=== PATIENT | female | born 1990 | race African-American/Black ===

== ENCOUNTER 2018-01-09 10:22 | Emergency (ER) | payer OTHER ==
[~2018-01-09] VITALS: Ht 160 cm; Wt 90.7 kg
[~2018-01-09 10:22] MED LIST: BACTRIM DS 8001 TAB PO; BENTYL10 MG PO; BUTALB-ACETAMI1 EACH PO; CLEOCIN HCL300 MG PO; ESGIC CAPSULE1 EACH PO; IBUPROFEN600 M1 PO; IBUPROFEN800 M1 PO; PRILOSEC 20MG C20 MG PO; ZOFRAN ODT4 MG SL; ZOFRAN4 M1 SL
--- NOTE | 2018-01-09 10:48 | ED GI/GU/ABDOMINAL COMPLAINT ---
History of Present Illness General Chief Complaint: Nausea, Vomiting, Diarrhea Stated Complaint: NAUSEA, STOMACH PAIN Source: patient Exam Limitations: no limitations Vital Signs & Intake/Output Vital Signs & Intake/Output ED Intake and Output 01/10 0000 01/09 1200 Intake Total 0 Output Total Balance 0 Intake, Oral 0 Patient 200 lb Weight Weight Reported by Patient Measurement Method Allergies Coded Allergies: Penicillins (Intermediate, HIVES 10/05/17) amoxicillin (Intermediate, HIVES 10/05/17) cefaclor (Intermediate, HIVES 10/05/17) Reconcile Medications Butalb/Acetaminophen/Caffeine (Esgic Capsule) 50 MG-325 MG-40 MG CAPSULE 1 CAP PO Q6H PRN HEADACHE Doxylamine/Pyridoxine HCl (Diclegis Dr 10-10 MG Tablet) 10 MG-10 MG TABLET.DR 1 TAB PO TID NAUSEA Ibuprofen 800 MG TABLET 1 TAB PO TID PRN PAIN Nitrofurantoin Monohyd/M-Cryst (Macrobid 100 MG Capsule) 100 MG CAPSULE 1 CAP PO BID UTI with food Triage Note: C/O MID ABDOMINAL PAIN WITH NASUEA, SOME VOMITING X 3 MONTHS. LMP: 11/23, UNSURE OF . Triage Nurses Notes Reviewed? yes ? y Is pt currently ? No Onset: Abrupt Duration: day(s):, constant, continues in ED Timing: recent history Radiation: no radiation No Modifying Factors: none HPI: 27-year-old female that reports that her last menstrual period was on 2017. She comes in with some nausea and some lower abdominal cramping. Denies any bleeding or leakage of fluid. Denies any increased frequency or burning with urination. History of previous . She sexually active. Denies any other associated symptoms. (Padilla Hernandez) Past History Travel History Traveled to [place] past 21 day No Medical History Any Pertinent Medical History? 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 No (Padilla Hernandez) Review of Systems Review of Systems Constitutional: Reports: no symptoms. EENTM: Reports: no symptoms. Respiratory: Reports: no symptoms. Cardiovascular: Reports: no symptoms. GI: Reports: see HPI. Genitourinary: Reports: see HPI. Musculoskeletal: Reports: no symptoms. Skin: Reports: no symptoms. Neurological/Psychological: Reports: no symptoms. Hematologic/Endocrine: Reports: no symptoms. Immunologic/Allergic: Reports: no symptoms. All Other Systems: Reviewed and Negative (Padilla Hernandez) Physical Exam Physical Exam General Appearance: well developed/nourished, no apparent distress, alert, awake Head: atraumatic Eyes: Bilateral: normal appearance. Ears, Nose, Throat, Mouth: hearing grossly normal, moist mucous membrane Neck: normal inspection Respiratory: no respiratory distress Cardiovascular: regular rate/rhythm Gastrointestinal: soft, distention (lower abd) Back: normal inspection Extremities: normal range of motion Neurologic/Psych: awake, alert, oriented x 3 Skin: intact, normal color Core Measures ACS in differential dx? Yes Sepsis Present: No Sepsis Focused Exam Completed? No (Padilla Hernandez) Progress Differential Diagnosis: appendicitis, ectopic , intrauterine , ovarian cyst, UTI/pyelo Plan of Care: Orders Procedure Date/time Status Add-on Test (ER Only) 01/09 1111 Active CULTURE,URINE 01/09 1042 Active URINE 01/09 1031 Complete URINALYSIS 01/09 1031 Complete Laboratory Tests 01/09/18 1042: Urinalysis LIGHT H, Urine Color YEL, Urine Clarity CLDY H, Urine pH 6.5, Ur Specific [place] 1.025, Urine Protein NEG, Urine Ketones TRACE H, Urine Nitrite NEG, Urine Bilirubin NEG, Urine Urobilinogen 0.2, Ur Leukocyte Esterase TRACE H , Ur Microscopic SEDIMENT EXAMINED, Urine RBC 1-3, Urine WBC 15-25 H, Ur Epithelial Cells PACKD H, Urine Bacteria FEW H, Urine Mucus MOD H, Urine Hemoglobin TRACE-INTACT, Urine Glucose NEG, Urine Test POSITIVE Microbiology 01/09 1042 URINE ROUT: Urine Culture - RECD Initial ED EKG: none (Padilla Hernandez) Departure Departure Disposition: HOME OR SELF CARE Condition: Stable Clinical Impression Primary Impression: Secondary Impressions: UTI (urinary tract infection) Referrals: Unknown (PCP) Additional Instructions: Take diclegis as prescribed. f/u with obgyn . take Macrobid as prescribed. Return if any concerns worsening symptoms. Please go over all results of today's visit with your primary care doctor. Contact your primary care doctor to let them know you were here in the emergency room. There may be nonspecific findings which may not be related to your visit today here in the emergency room but may require further evaluation and chronic monitoring by your primary care doctor. If you had a laceration today the chance of foreign body always remains. You should follow-up with your primary care doctor for recheck in 3-5 days for a wound check. If you had an x-ray done there is a chance that a fracture could have been missed on initial read and you should follow-up with your primary care doctor for repeat x-rays if symptoms persist. If your blood pressure was elevated here in the emergency room please have rechecked by [facility] primary care doctor within the next 48. If you were prescribed a narcotic here in the emergency room or any type of controlled substances you're not allowed to drive while taking this medication or operate any type of heavy machinery. Narcotics can make you feel lightheaded dizziness nausea and can cause constipation. 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 Thank you for choosing [facility] emergency room. Please return to the emergency room immediately if you have any other concerns worsening of symptoms. Departure Forms: Customer Survey General Discharge Information Prescriptions: Current Visit Scripts Doxylamine/Pyridoxine HCl (Diclegis Dr 10-10 MG Tablet) 1 TAB PO TID #48 TAB Nitrofurantoin Monohyd/M-Cryst (Macrobid 100 MG Capsule) 1 CAP PO BID #14 CAP with food Comments 01/09/2018 11:34:00 AM Patient clinically looks well. She does not appear to be any type of distress. Hemodynamically stable. No suspicion for ectopic at this time. Patient will be treated for UTI. Follow-up with AUDIT CONSULTANT doctor for outpatient ultrasound and further evaluation. She reports that she has a doctor. She understands and agrees with plan of care. Case discussed with Dr. vergara. (Padilla Hernandez) PA/WATER AND FIRE TECHNICIAN Co-Sign Statement Statement: ED Attending supervision documentation- [] I saw and evaluated the patient. I have also reviewed all the pertinent lab results and diagnostic results. I agree with the findings and the plan of care as documented in the PA's/WATER AND FIRE TECHNICIAN's documentation. [X] I have reviewed the ED Record and agree with the PA's/WATER AND FIRE TECHNICIAN's documentation. [] Additions or exceptions (if any) to the PAs/WATER AND FIRE TECHNICIAN's note and plan are summarized below: [] (Tor JACQUES,Lina)
[2018-01-09] MEDS ORDERED: MACROBID 100 M100 MG PO (11:24)
[2018-01-09] MEDS ORDERED: DICLEGIS DR 101 EACH PO (11:24)
[2018-01-09 12:18] VITALS: BP 109/74
== END 2018-01-09 12:19 ==
LOC: ERH 10:22
DX: O23.41 Unspecified infection of urinary tract in pregnancy, first trimester (principal); Z3A.00 Weeks of gestation of pregnancy not specified
CPT/HCPCS: 81001; 81025; 87086